=== PATIENT | female | born 1980 | race Caucasian/White ===

== ENCOUNTER 2024-09-24 15:37 | Emergency (ER) | payer MEDICAID, SELFPAY ==
[2024-09-24 15:37] VITALS: BP 164/115; PULSE 99; RESP 18; TEMP 37.1; O2SAT 100; BMI 30.7
--- NOTE | 2024-09-24 15:48 | EX.ED.DYSGE1 ---
HPI History of Present Illness Chief Complaint: Abd Pain Narrative Narrative: 44-year-old female past medical history of hypertension and abdominal wall hernia presents with abdominal pain that she has had for 10 months that is worsened over the last 3 days as well as being out of her blood pressure medication. She states that she was incarcerated for 7 months, and recently moved here from [place]. She was taking a medication or 2 for blood pressure while she was incarcerated but 2-1/2 weeks ago they moved her to another shelter, and have not been giving her any medication whatsoever. She cannot recall what medication she took for her blood pressure. Additionally, she complains of having a known abdominal hernia which has caused her pain for at least 10 months. Over the last 3 days, she has had increasing pain on the left side of the hernia and also on the right. She denies any dysuria or hematuria, no fevers or chills, no nausea or vomiting, no problems with bowel movements. PFSH PFSH Home Medications ?Medication ?Instructions ?Recorded ?Last Taken ?Type amlodipine 2.5 mg tablet 2.5 mg PO DAILY #14 tabs 09/24/24 Unknown Rx Allergy/AdvReac Type Severity Reaction Status Date / Time Penicillins (PCN) Allergy Severe Anaphylaxis Verified 09/24/24 15:38 Social History Smoking Status: Current every day smoker tobacco type: cigarettes and e-cigarettes ROS ROS ED ROS Narrative Review of systems positive for abdominal wall hernia pain. Out of blood pressure medications. No headaches, no fevers or chills, no nausea or vomiting, no chest pain or shortness of breath, no exacerbating or alleviating factors. No dysuria or hematuria, no problems with bowel movements. EXAM Physical Exam Narrative Exam Narrative: Afebrile. Vital signs noted. Nontoxic-appearing. Cardiovascular examination reveals a regular rate and rhythm. Lungs are clear to auscultation bilaterally. The abdomen is soft and nontender without guarding or rebound. Positive bowel sounds. Positive reducible anterior abdominal wall hernia without erythema or induration. Neurological examination nonfocal, nonlateralizing. Const Vital Signs: 09/24/24 15:37 Temperature 98.7 F Temperature Source Oral Pulse Rate 99 Respiratory Rate 18 Blood Pressure 164/115 H Blood Pressure Mean 131 Pulse Ox 100 Oxygen Delivery Method Room Air MDM MDM MDM Narrative Medical decision making narrative: The differential diagnosis includes but not limited to uncontrolled hypertension secondary to being out of medication. Regarding her abdominal wall hernia, I do not feel that it is incarcerated and there are no signs of obstruction in the history and physical. X-rays will be obtained of the abdomen in 2 views, and urinalysis performed as well to help rule out pyelonephritis versus UTI. I had a lengthy discussion with the patient regarding her medications. She states that metoprolol or Toprol does not sound familiar. I also mention amlodipine and she was unsure. Her blood pressure here is 164/115. I will discuss with her writing her for a low-dose of amlodipine for 1 to 2 weeks, but I strongly urged her to follow-up with primary care and to keep track of her blood pressure. I do not feel that she has a hypertensive urgency or emergency currently as she is essentially asymptomatic with her blood pressure. Additionally, she will be referred to surgery on-call regarding her anterior wall abdominal wall hernia that is reducible. She can take [id number] analgesics for analgesia. Urine test is negative. I reviewed her urinalysis and while there are 5-10 WBCs there are 5-10 squamous epithelial cells so I feel this is most likely a contaminated specimen. I do not feel antibiotics are indicated for UTI. She was referred to primary care provider as well as general surgery regarding her ventral hernia. I wrote her a prescription for 2 weeks of amlodipine 2.5 mg to start for her history of high blood pressure. I feel she can be discharged safely home with follow-up. Return instructions reviewed. Disposition is discharged home in stable condition. History & Record Review Discussion w/independent historian: Patient Additional record(s) reviewed:: No prior records (No prior ED visits) Lab Data Attestation: I reviewed the patient's lab results. Labs: Laboratory Results - last 24 hr 09/24/24 16:10 Urine Color Straw Urine Clarity Sl. Cloudy Urine pH 6.0 Ur Specific [place] 1.015 Urine Protein 15 H Urine Glucose (UA) Normal Urine Ketones Negative Urine Occult Blood 10 H Urine Nitrite Negative Urine Bilirubin Negative Urine Urobilinogen Normal Ur Leukocyte Esterase 25 H Urine RBC 0-5 SEEN Urine WBC 5-10 SEEN Ur Squamous Epith Cells 5-10 SEEN Calcium Oxalate Crystal RARE Urine Bacteria 1+ Urine Mucus 0 SEEN Urine Test Negative Radiography Diagnostic Testing: Clinical Impression(s) from Imaging Studies Abdomen X-Ray 09/24/24 16:16 IMPRESSION: Hepatosplenomegaly. Reading Location: [facility] Discharge Plan Triage Chief Complaint: Abd Pain ED Provider: Samy Abarca Dx/Rx/DC Orders Clinical Impression: Abdominal pain, Hernia, Has run out of medications, Hypertension Instructions: ED Abdominal Pain Unkn Cause Fem, ED Hernia (Adult), ED High Blood Pressure Hypertension Prescriptions: New amlodipine 2.5 mg tablet 2.5 mg PO DAILY Qty: 14 0RF Primary Care Provider: Care Physician,No Primary Referrals: Rony Horta MD [Med Staff - Active Staff] - As soon as possible Usama Brian MD [Med Staff - Active Staff] - As soon as possible Care Physician,No Primary [Primary Care Provider] - Activity Restrictions/Additional Instructions: Follow-up with primary care regarding your high blood pressure medication and refills. Follow-up with general surgery regarding your hernia as needed. Return with fever, nausea and vomiting, increased pain, new or worsening symptoms. [id number] medications like Tylenol or ibuprofen as needed for pain. Print Language: Luxembourger Disposition Disposition: Home, Self Care
--- NOTE | 2024-09-24 16:16 | RAD_ITS ---
PROCEDURE: ABD INC DECUB AND/OR ERECT 09/24/2024 REASON FOR EXAM: PAIN. Sharp pain/cramping abdominal pain for 10 months. TECHNIQUE: ABD INC DECUB AND/OR ERECT COMPARISON: None. FINDINGS: LUNG BASES: Lung bases clear where seen. BOWEL: The bowel gas pattern is unremarkable. No bowel obstruction. PERITONEUM/SOFT TISSUES: No appreciable free air. No abnormal calcifications. Right mid abdominal surgical clips. The liver and spleen appear enlarged. BONES: No acute osseous abnormality. RAD/Abd Inc Decub and/or Erect IMPRESSION: Hepatosplenomegaly. Reading Location: [id number]
[2024-09-24 16:19] LABS: Mucous, Urine 0 SEEN /hpf (<or=2+)
[2024-09-24 16:25] LABS: Color, Urine Straw (Yellow); Glucose, Dipstick Normal (Normal); Ketone-Dipstick Negative (Negative); Leukocyte Esterase-Dipstick 25 /ul (Negative); Nitrite-Dipstick Negative (Negative); Occult Blood-Urine 10 /ul (Negative); Protein-Dipstick 15 mg/dl (Negative); Specific Gravity, Urine 1.015 (1.002-1.030); Urine Bilirubin Dipstick Negative (Negative)
[2024-09-24 16:41] LABS: Internal QC Validated? YES +Cl - CLEAR BKGD; Pregnancy, Urine Negative Negative
[2024-09-24 16:42] LABS: Record Kit Lot#,Urine Preg 962302
[2024-09-24 16:55] LABS: Squamous Epithelial Cells - UA 5-10 SEEN /hpf (5-10)
[2024-09-24 16:57] LABS: Calcium Oxalate Crystals Ur RARE /hpf (<or=2+)
[2024-09-24 16:58] LABS: Red Blood Cells-Urine 0-5 SEEN /hpf (0-5)
[2024-09-24 17:36] VITALS: BP 133/99; PULSE 93; RESP 16; TEMP 36.7; O2SAT 100
== END 2024-09-24 17:37 | disposition home or self-care (01) ==
PROVIDERS: Emergency Provider Emergency Medicine; Visit Provider Emergency Medicine
DX: R10.9 Unspecified abdominal pain (principal); I10 Essential (primary) hypertension; F17.210 Nicotine dependence, cigarettes, uncomplicated; K46.9 Unspecified abdominal hernia without obstruction or gangrene
CPT/HCPCS: 74019; 81001; 81025; 99282